=== PATIENT | male | born 1985 | race Hispanic/Latino ===

== ENCOUNTER 2024-03-15 02:13 | Inpatient (IN) | payer SELFPAY ==
[2024-03-14 18:33] VITALS: BP 137/89
--- NOTE | 2024-03-14 19:00 | ED.SKININJ ---
HPI-Injury
<Babatunde Neal PA-C - Last Filed: 03/14/24 21:37>
General
Chief Complaint: Skin Surface Trauma
Source: patient
Exam Limitations: none
Time Seen by Provider: 03/14/24 18:45
History of Present Illness-Injury
Initial Injury comments:
38-year-old [id number] male presents with chainsaw injury to left hand he sustained today. They noted a laceration to the index and middle fingers. Last tetanus unknown. He states no numbness or loss of function. No other complaints.
Phy Exam
<Babatunde Neal PA-C - Last Filed: 03/14/24 21:37>
Physical Exam
Physical Exam:
General: Well-appearing male no acute distress
Skin: Ragged laceration dorsal aspect left long finger ranging from the MCP joint dorsally distally to the ulnar aspect of the distal proximal phalanx. The tendon is exposed and at least partially injured. There is potential open joint involvement
at the MCP joint dorsally of the long finger. This measures about 4 cm in length
Small laceration dorsal index finger distally over the DIP joint without obvious tendon involvement.
Neuro: good sensation all fingers left hand.
MSK: Patient does exhibit ability to extend his fingers at the MCP and IP joints of the left hand however there is weak extension strength of the MCP joint of the long finger.
Vascular: good brisk refill to fingers left hand
Course
<Babatunde Neal PA-C - Last Filed: 03/14/24 21:37>
Orders/Labs/Results
Orders:
Orders
03/14/24 18:58
Tetanus/Diphth/Acelpertussis [Adacel] 0.5 ml IM .ONCE ONE
CR Hand - Left Min 3 Views Urgent
Comment:
Reason For Exam: laceration
03/14/24 19:05
CeFAZolin 1 GRAM [Ancef] 1 gram in 5 ml IV NOW
03/14/24 19:24
HYDROmorphone [Dilaudid] 0.5 mg IV NOW STA
03/14/24 20:22
HYDROmorphone [Dilaudid] 0.5 mg IV NOW STA
03/14/24 20:26
Ketorolac [Toradol] 15 mg IV NOW STA
Vital Signs
Initial and Last Documented VS:
Initial Vital Signs
Temp Pulse Resp BP Pulse Ox
98.2 F 61 18 137/89 99
03/14/24 18:33 03/14/24 18:33 03/14/24 18:33 03/14/24 18:33 03/14/24 18:33
Last Documented Vital Signs
Temp Pulse Resp BP Pulse Ox
98.2 F 61 18 137/89 99
03/14/24 18:33 03/14/24 18:33 03/14/24 18:33 03/14/24 18:33 03/14/24 18:33
<Lars Wright MD - Last Filed: 03/14/24 21:23>
Orders/Labs/Results
Orders:
Orders
03/14/24 18:58
Tetanus/Diphth/Acelpertussis [Adacel] 0.5 ml IM .ONCE ONE
CR Hand - Left Min 3 Views Urgent
Comment:
Reason For Exam: laceration
03/14/24 19:05
CeFAZolin 1 GRAM [Ancef] 1 gram in 5 ml IV NOW
03/14/24 19:24
HYDROmorphone [Dilaudid] 0.5 mg IV NOW STA
03/14/24 20:22
HYDROmorphone [Dilaudid] 0.5 mg IV NOW STA
03/14/24 20:26
Ketorolac [Toradol] 15 mg IV NOW STA
Vital Signs
Initial and Last Documented VS:
Initial Vital Signs
Temp Pulse Resp BP Pulse Ox
98.2 F 61 18 137/89 99
03/14/24 18:33 03/14/24 18:33 03/14/24 18:33 03/14/24 18:33 03/14/24 18:33
Last Documented Vital Signs
Temp Pulse Resp BP Pulse Ox
98.2 F 61 18 137/89 99
03/14/24 18:33 03/14/24 18:33 03/14/24 18:33 03/14/24 18:33 03/14/24 18:33
<Babatunde Neal PA-C - Last Filed: 03/14/24 21:37>
MDM/Problems Addressed
Differential Diagnosis Includes:
Chainsaw injury left hand. Concern for extensor tendon injury with possible joint involvement of the MCP joint of the long finger. Patient appears to have good flow to the fingers and good sensation to the fingers. Tetanus updated will give
Ancef IV secondary to the open nature of the wound x-rays pending. The hand is currently soaking in Betadine and saline.
<Babatunde Neal PA-C - Last Filed: 03/14/24 21:37>
*Critical Care Note
Total Time (30-74mins, 75-104mins- exclusive of procedures): Not Applicable
<Babatunde Neal PA-C - Last Filed: 03/14/24 21:37>
Update Note
Update Note:
Reviewed x-rays and demonstrates injury to the bone involving the dorsal and ulnar cortex of the proximal phalanx of the middle finger. There is also bony injury to the middle phalanx dorsally of the index finger. Also concern for open joint upon
reinspection. The hand was soaked with saline and Betadine. Ancef tetanus updated. Contacted orthopedics for recommendations spoke with orthopedics. Unable to initially get a hold of hand surgery here. 1 hand surgeon replied and states he was
out of town. Based on recommendations initially from [facility], I made arrangements for transportation to [facility] [place]. Spoke with hand fellow Dr. Orta, as well as hospitalist at [facility] Dr. Harvey. Patient will be transferred
to [facility] and then to the [facility] floor to be evaluated by hand specialist during his stay there. He was given Ancef. Tetanus updated. Dressing with a volar splint applied
ED Attending Note
<Babatunde Neal PA-C - Last Filed: 03/14/24 21:37>
-
Portions of this chart may have been created with voice recognition software.� Occasional wrong word or��sound alike� substitutions may have occurred due to the inherent limitations of voice recognition software.
<Lars Wright MD - Last Filed: 03/14/24 21:23>
ED Attending Note
I performed the substantive portion of visit, reviewed & personally made and approve the management plan that is documented in note by myself or SENDY.: Yes
ED Attending Note:
History, exam, along with x-ray consistent with an open fracture injury, with significant contamination.
Discussed with on-call orthopedic surgery, Dr. Fish, who recommended patient to be discussed with hand surgeon within her group for recommendation (/Tierney). As neither hand surgeon is available, decision made to transfer patient to
[facility] for further evaluation and treatment. Discussed with on-call hand fellow at [facility], who recommended patient to be admitted under hospitalist service at [facility] for evaluation and treatment.
Patient given IV antibiotics and wound treated with irrigation. Affected hand will be splinted, at the recommendation of receiving orthopedic surgery. Patient remains neurovascularly intact during treatment.
Discharge Plan
Departure
Patient Disposition: Acute Care Hospital
Date of Disposition: 03/14/24
Time of Disposition: 21:35
Discharge Problem:
Open fracture of hand
Referrals:
NONE,* [Family Provider] -
Hospital Transfer
Other hospital: [facility]
I certify that the patient requires transfer: Yes
Discussed case with accepting physician: Dr. Harvey
Reason for transfer: higher level of care, availability of service and specialties available
Interventions
Interventions:
ED-Skin Assessment Last Done: 03/14/24 19:15
Discharge Date and Time
Print Language: MONGOLIAN
[2024-03-14] MEDS: ADACEL 0.5 ML IM (19:16)
[2024-03-14] MEDS: ANCEF 5 IV (19:21)
[2024-03-14] MEDS: DILAUDID 0.5 MG IV (19:27)
[2024-03-14] MEDS: TORADOL 15 MG IV (20:28)
[2024-03-14 21:48] VITALS: BP 118/75
[2024-03-15 00:30] VITALS: BP 120/68
--- NOTE | 2024-03-15 01:59 | HPS.HSE ---
Family Physician
-
Family Physician: * NONE
Chief Complaint
-
Left hand injury
History of Present Illness
This is a 38-year-old Uzbek-speaking male with no significant past medical history who came to the emergency department after suffering an injury while using a hand saw.
History obtained via use of air conditioning installer supervisor. Patient in usual state of health up until event. He was cutting limb timber at home using a chainsaw when there was admission and patient sought one of his fingers. Was quickly brought to the
emergency department. He has had no fevers since the event. In the ED he had temporary casting and bandage and he was referred to hand surgery. Hand surgery will perform the send medicine patient is currently awaiting a bed.
He was afebrile hemodynamically stable blood pressure 118/77 with pulse of 67. Oxygen saturation was normal. Left thumb x-ray shows minimally comminuted acute nondisplaced oblique fracture at the radial aspect of the proximal metaphysis of the
middle finger consistent with compound fracture.
Medical History
Past Medical History
Past Medical History: Reports None
Past Surgical History: Reports None
Social History
Tobacco: Non-smoker
Alcohol: Former
Drug: None
Personal: Partner
Living: With Family
Employment: Employed
Family History
Family History: Not pertinent (Negative)
Allergies / Home Medications
Allergies reflects when Allergies were last updated in [facility].
Home Medications with original date entered in [facility]
Allergy/Medication List:
Allergies
Allergy/AdvReac Type Severity Reaction Status Date / Time
No Known Allergies Allergy Unverified 03/03/23 16:33
NONE
Review of Systems
-
History Source: Patient
Constitutional: Reports No Symptoms
EENT: Reports No Symptoms
Respiratory: Reports No Symptoms
Cardiac: Reports No Symptoms
Abdomen/GI: Reports No Symptoms
: Reports No Symptoms
Musculoskeletal: Reports Joint Pain
Skin: Reports No Symptoms
Neurological: Reports No Symptoms
Endocrine: Reports No Symptoms
Hematologic/Lymphatic: Reports No Symptoms
Psych: Reports No Symptoms
Physical Exam
Vital Signs
Vital Signs
Temp Pulse Resp BP Pulse Ox
98.2 F 67 18 118/75 99
03/14/24 18:33 03/14/24 21:48 03/14/24 22:00 03/14/24 21:48 03/14/24 21:48
Physical Exam
General: Well Developed, Well Nourished, No Apparent Distress and Comfortable
HEENT: NormoCephalic, Anicteric, Moist mucous membranes, Atraumatic and PERRLA
Respiratory: Clear
Cardiac: S1/S2 and Regular Rhythm
Breast: Deferred by me
GI: Soft, Non Tender, Non Distended and Normal Bowel Sounds
Rectal: Deferred by Provider
Genito-urinary: Deferred by me
Musculoskeletal: No Clubbing, No Cyanosis, No Edema and Other (left hand in a cast. Pulses intact.)
Skin: Warm
Neuro: AO x 3
Psych: Calm
Data Reviewed
-
Diagnostic Radiology: Report Reviewed by me
Impression/Plan
-
IMPRESSION:
PLAN:
1. Left hand with minimally comminuted acute nondisplaced oblique fracture at the radial aspect of the proximal metaphysis of the middle finger consistent with compound fracture.
- admit to med surg
- patient is accepted at [facility] hand surgeon and awaiting a bed.
- pain control
- iv abx
DVT PPX - lovenox sq
Code status - full code
[2024-03-15 02:35] VITALS: BP 116/67
[2024-03-15 02:47] VITALS: BP 129/68
--- NOTE | 2024-03-15 02:47 | PTCARENOTE ---
Pt arrived onto floor @0247. Pt AAOx3 and able to walk into room without assistance. Pt complains of 4/10 pain in L hand, however does not want any pain medication at this time. Pt oriented to room and call hickey; will continue to monitor.
[2024-03-15] MEDS: ANCEF 5 IV ×2 (04:17→11:22)
[2024-03-15] MEDS: D5/0.45%NACL 1000 IV (04:18)
[2024-03-15 07:00] VITALS: BP 115/64
--- NOTE | 2024-03-15 07:32 | W.PN.HOSP.TC ---
Today's Communication/Plan
-
cont abx
pain control
transfer to [facility] when bed available.
Assessment / Plan
Assessment / Plan
Physical Exam
General: Well Developed, Well Nourished, No Apparent Distress and Comfortable
HEENT: NormoCephalic, Anicteric, Moist mucous membranes, Atraumatic and PERRLA
Respiratory: Clear
Cardiac: S1/S2 and Regular Rhythm
GI: Soft, Non Tender, Non Distended and Normal Bowel Sounds
Musculoskeletal: No Clubbing, No Cyanosis, No Edema, left hand cast
Skin: Warm
Neuro: AO x 3
Psych: Calm
#Left hand with minimally comminuted acute nondisplaced oblique fracture at the radial aspect of the proximal metaphysis of the middle finger consistent with compound fracture.
#Also subtle cortical disruption at the dorsal ulnar aspect of the diaphysis of the middle phalanx of the index finger consistent with nondisplaced compound fracture
- accepted [facility] hand surgeon and awaiting bed.
- pain control
- iv abx
DVT PPX - lovenox sq
Code status - full code
I spent a total of 50 minutes with the patient or on the floor. More than 50% of this time involved counseling and coordination of care.
Anticipated Discharge: Within 24 hours
Subjective/Interval History
-
Date of Service: March 15, 2024
Interviewed with paraprofessional interpreter language line. No acute distress. Appears comfortable at this time. Reports pain well controlled at this time.
Objective Data
-
Vital Signs:
Vital Signs
Temp Pulse Resp BP Pulse Ox
97.6 F 44 18 129/68 99
03/15/24 02:47 03/15/24 02:47 03/15/24 02:47 03/15/24 02:47 03/15/24 02:47
[2024-03-15 09:29] LABS: Hematocrit 41.4 % (39.0-52.0); Hemoglobin 14.5 g/dL (13.0-18.0); Mean Corpuscular Hgb 29.4 pg (27.0-31.0); Platelet Count 230 10^3/uL (130-400); Red Blood Cell Count 4.93 10^6/uL (4.70-6.10); Red Cell Dist. Width 12.1 % (11.5-14.5)
[2024-03-15 10:09] LABS: Blood Urea Nitrogen 18 mg/dl (9-20); Calcium 9.4 mg/dl (8.4-10.2); Carbon Dioxide 22 mmol/L (22-30); Chloride 106 mmol/L (98-107); Glucose 101 mg/dl (70-99); Phosphorus 3.7 mg/dl (2.5-4.5); Potassium 4.2 mmol/L (3.5-5.1); Sodium 141 mmol/L (135-145); eGFR > 60.00
--- NOTE | 2024-03-15 10:19 | CM ---
Addendum entered by Denisse Salmeron 03/15/24 10:50:
quality assurance test program manager spoke with patient and confirmed that he does not have insurance, plan is for ambulance transport today at 2pm.
Original Note:
Chart reviewed and patient is being set up for hospital to hospital transfer.
Plan; Hospital to hospital transfer.
[2024-03-15 13:59] VITALS: BP 118/52
--- NOTE | 2024-03-15 14:39 | W.DCSUMMARY ---
Discharge Summary
Discharge Data
Date of Admission: 03/15/24
Date of Discharge: 03/15/24
-
Pending Results: No
Discharge Plan
-
Patient Disposition: Acute Care Hospital
Discharge Orders:
Discharge Patient (As Directed); Ordered 03/15/24
Ordered By: Yady Chicas
Discharge Date and Time
Discharge Date/Time: 03/15/24 14:25
Print Language: FRISIAN
== END 2024-03-15 14:25 | disposition short-term general hospital (02) | DRG 563 ==
LOC: 4 WEST ACU 02:13
PROVIDERS: ADMITTING PHYSICIAN Internal Medicine; ATTENDING PHYSICIAN Internal Medicine; EMERGENCY PHYSICIAN Emergency Medicine
DX: S62.643B Nondisplaced fracture of proximal phalanx of left middle finger, initial encounter for open fracture (principal); W29.3XXA Contact with powered garden and outdoor hand tools and machinery, initial encounter; Z75.1 Person awaiting admission to adequate facility elsewhere
CPT/HCPCS: 29125; 73130; 80048; 83735; 84100; 85027; 90471; 90715; 96374; 96375; 96376; 99285